=== PATIENT | male | born 1950 | race Caucasian/White ===

== ENCOUNTER 2017-03-29 06:14 | Emergency (ER) | payer MEDICARE ==
[~2017-03-29] VITALS: Ht 177.8 cm; Wt 118.2 kg
[~2017-03-29 06:14] MED LIST: METF500T PO
[2017-03-29] MEDS ORDERED: CARV3 PO (06:25)
[2017-03-29 06:26] LABS: GLUCOSE,POINT OF CARE 248 MG/DL (70-110)
[2017-03-29 08:17] VITALS: BP 146/81
== END 2017-03-29 08:19 | disposition home or self-care (01) ==
LOC: EMS 06:15
DX: B37.49 Other urogenital candidiasis (principal); I50.9 Heart failure, unspecified; E11.9 Type 2 diabetes mellitus without complications; J44.9 Chronic obstructive pulmonary disease, unspecified; K21.9 Gastro-esophageal reflux disease without esophagitis; Z87.891 Personal history of nicotine dependence
CPT/HCPCS: 82962; 99283